=== PATIENT | male | born 2000 | race Caucasian/White ===

== ENCOUNTER 2022-08-20 12:48 | Emergency (ER) | payer SELFPAY ==
[~2022-08-20] VITALS: Ht 162.6 cm; Wt 61.2 kg
[2022-08-20] MEDS ORDERED: ZYPREXA10 MG PO (16:49)
== END 2022-08-20 16:58 | disposition home or self-care (01) ==
LOC: ED 12:48
DX: F22 Delusional disorders (principal); F20.9 Schizophrenia, unspecified
CPT/HCPCS: 36415; 80053; 81003; 84443; 85025; 99284; A9270; G0480